=== PATIENT | female | born 1985 | race Caucasian/White ===

== ENCOUNTER 2018-03-14 11:04 | Emergency (ER) | payer BC, SELFPAY ==
[2018-03-14 11:15] VITALS: BP 136/73; PULSE 90; RESP 16; TEMP 36.7; O2SAT 99
--- NOTE | 2018-03-14 11:21 | W.ED.GENAD ---
Discharge Plan Discharge Details Chief Complaint: EarProblem Primary Care Provider: NONE,NONE ED Provider: Arielle Menezes Home Meds and New Rx's Prescriptions: No Action buprenorphine-naloxone [Suboxone] 1 EACH film 10 mg Sublingual DAILY RF: 0 HPI General Date/Time Provider Initiated Documentation: 03/14/18 11:21. Limitations to Documentation: no limitations. Information obtained by: patient. Related Data Home Medications Medication Instructions Recorded Confirmed buprenorphine-naloxone [Suboxone] 10 mg SUBLINGUAL DAILY 10/01/12 03/14/18 Allergies Allergy/AdvReac Type Severity Reaction Status Date / Time Penicillins Allergy Intermediate Hives Unverified 08/30/17 09:34 General Stated Complaint: EarProblem PRAVIN: 4 PFSH Social History Smoking/Tobacco Use Status: Current every day Course Vital Signs Temperature 36.7 C 03/14/18 11:15 Pulse 90 03/14/18 11:15 Respiratory Rate 16 03/14/18 11:15 Blood Pressure 136/73 03/14/18 11:15 Pulse Oximetry 99 03/14/18 11:15 Temperature 36.7 C 03/14/18 11:15 Temperature Source Temporal Artery Scan 03/14/18 11:15 Pulse 90 03/14/18 11:15 Respiratory Rate 16 03/14/18 11:15 Respiratory Effort 03/14/18 11:17 Blood Pressure 136/73 03/14/18 11:15 Blood Pressure Position Sitting 03/14/18 11:15 Pulse Oximetry 99 03/14/18 11:15 Oxygen Delivery Method Room Air 03/14/18 11:15 Oxygen Flow Rate 0 03/14/18 11:15 Pain Level 0 03/14/18 11:15
--- NOTE | 2018-03-14 11:26 | ED.GENADUL_ITS ---
Discharge Plan Discharge Details Chief Complaint: EarProblem Primary Care Provider: NONE,NONE ED Provider: Arielle Menezes Home Meds and New Rx's Prescriptions: No Action buprenorphine-naloxone [Suboxone] 1 EACH film 10 mg Sublingual DAILY RF: 0 HPI General Date/Time Provider Initiated Documentation: 03/14/18 11:21 . Limitations to Documentation: no limitations . Information obtained by: patient . Related Data Home Medications Medication Instructions Recorded Confirmed buprenorphine-naloxone [Suboxone] 10 mg SUBLINGUAL DAILY 10/01/12 03/14/18 Allergies Allergy/AdvReac Type Severity Reaction Status Date / Time Penicillins Allergy Intermediate Hives Unverified 08/30/17 09:34 General Stated Complaint: EarProblem PRAVIN: 4 PFSH Social History Smoking/Tobacco Use Status: Current every day Course Vital Signs Temperature 36.7 C 03/14/18 11:15 Pulse 90 03/14/18 11:15 Respiratory Rate 16 03/14/18 11:15 Blood Pressure 136/73 03/14/18 11:15 Pulse Oximetry 99 03/14/18 11:15 Temperature 36.7 C 03/14/18 11:15 Temperature Source Temporal Artery Scan 03/14/18 11:15 Pulse 90 03/14/18 11:15 Respiratory Rate 16 03/14/18 11:15 Respiratory Effort 03/14/18 11:17 Blood Pressure 136/73 03/14/18 11:15 Blood Pressure Position Sitting 03/14/18 11:15 Pulse Oximetry 99 03/14/18 11:15 Oxygen Delivery Method Room Air 03/14/18 11:15 Oxygen Flow Rate 0 03/14/18 11:15 Pain Level 0 03/14/18 11:15
--- NOTE | 2018-03-14 12:07 | W.ED.GENAD ---
Discharge Plan Disposition Patient Disposition: HOME Condition: Fair Discharge Details Chief Complaint: EarProblem Clinical Impression: Fluid level behind tympanic membrane Primary Care Provider: NONE,NONE ED Provider: Rosa Maria Frye Home Meds and New Rx's Prescriptions: New azithromycin 500 mg tablet See Label Instructions .ROUTE .COMPLEX Qty: 3 RF: 0 No Action buprenorphine-naloxone [Suboxone] 1 EACH film 10 mg Sublingual DAILY RF: 0 Discharge Instructions Instructions: Otitis Media (ED) Additional Instructions: Encourage hydration. Tylenol and ibuprofen as needed for discomfort. Please use Afrin and daily antihistamine to help with symptom medic management. At this point, your does not appear to have a bacterial infection. However, as one may develop, I have also prescribed an antibiotic to begin if you develop pain, fevers or symptoms persist over the next 2-3 days. If you develop new/worsening symptoms please seek care urgently once again Discharge Data Discharge Date/Time-TO BE ENTERED AT DEPARTURE: 03/14/18 12:31 Medical Decision Making Patient is a 32-year-old female presenting today with chief complaint of diminished hearing in the left ear. Patient has IUD in place. She reports that she had cold symptoms for the past week and a half. Reports that her cough is improving. However, she started feeling ear pressure yesterday. States that this morning when she awoke she noted that the area was quite diminished. Reports that she has had symptoms like this similarly and was diagnosed with otitis media. She denies any recent fevers or chills. Denies any pain in the ear. Denies any GI upset. Patient is an active smoker. Reports that she has had a cough but this is been improving and is nonproductive. States she has been having a lot of nasal congestion. Denies any sinus pain. States she has had slightly sore throat but feels that this is from postnasal drip. On exam, patient has a clear notable fluid level in the left ear. No erythema, bulging or loss of landmarks. Patient I discussed that this does not appear frankly bacterial. It appears more like eustachian tube dysfunction likely associated with her recent illness. We discussed the pathology associated with this. I advised that she try [id number] medications such as Afrin and antihistamine. We also discussed that this can develop into a otitis media and his bacteria can propagate in this stagnant fluid. I will prescribe an antibiotic that she will begin if she develops fevers, chills or increased discomfort in the ear. Advise follow-up with primary care in 1 week if symptoms have not completely resolved. Encouraged smoking cessation. All of her questions and concerns were addressed and she is in agreement this time. HPI General Mode of arrival: ambulatory. Date/Time Provider Initiated Documentation: 03/14/18 11:21. Limitations to Documentation: no limitations. Information obtained by: patient. History of Present Illness 32 year old F presents to the emergency department with the chief complaint of diminished hearing left ear, described as mild, Quality is described as aching, and is localized to the face. Patient reports no radiation. Patient started experiencing this day(s) (1) and it has been constant. No relieving factors improve symptom(s), No exacerbating factors reported . Patient notes other (congestion); denies chest pain, cough, fever/chills, headaches, loss of appetite, malaise and rash. Patient did receive the following treatments prior to arrival, none Related Data Home Medications Medication Instructions Recorded Confirmed buprenorphine-naloxone [Suboxone] 10 mg SUBLINGUAL DAILY 10/01/12 03/14/18 azithromycin See Label Instructions .ROUTE 03/14/18 .COMPLEX #3 tab Previous Rx's Medication Instructions Recorded azithromycin See Label Instructions .ROUTE 03/14/18 .COMPLEX #3 tab Allergies Allergy/AdvReac Type Severity Reaction Status Date / Time Penicillins Allergy Intermediate Hives Unverified 08/30/17 09:34 General Stated Complaint: EarProblem PRAVIN: 4 Review of Systems Constitutional Reports as per HPI and Denies headache(s) Eyes Denies change in vision and Denies eye discharge ENT Reports as per HPI, Denies vertigo, Denies dizziness and Denies headache(s) Cardiovascular Reports as per HPI Respiratory Reports as per HPI Gastrointestinal Denies nausea and Denies vomiting Integumentary/Breasts Denies rash Neurologic Reports as per HPI, Denies vertigo, Denies dizziness and Denies headache(s) [facility] Social History Smoking/Tobacco Use Status: Current every day Exam Const General: cooperative, healthy appearing, comfortable, no acute distress, well developed and well groomed Nutritional Appearance: average body habitus and well nourished Orientation: alert and awake HENMI Head: normal to inspection, normocephalic and atraumatic Ears: hearing grossly normal bilaterally, external ears normal, TM normal on the right, mastoids normal, no periauricular adenopathy and TM abnormal wth effusion serous and with fluid behind the TM on the left; not bulging, not bullous, not dull, not erythematous, with no loss of landmarks, not obstructed by cerumen, not perforated and not retracted General nose exam: external nose normal Face and sinus: normal facial exam and sinuses nontender Mouth: oral mucosae normal, lip normal, tongue normal, oropharynx normal, moist mucous membranes and no trismus Teeth and gingiva: dentition normal Throat: posterior oropharynx normal, tonsils normal and uvula midline Eyes General: appearance normal, both eyes and all related structures Alignment and Position: alignment normal Eyelids: eyelids normal Conjunctivae: conjunctivae normal Sclera: sclerae normal Cornea: corneas normal Pupils: PERRL EOM: EOM intact bilaterally Neck Neck: normal visual inspection, full ROM, no lymphadenopathy and no meningeal signs Resp Effort & Inspection: normal respiratory effort, able to speak in complete sentences and no respiratory distress Auscultation: clear to auscultation bilaterally Cardio Rate: regular rate Rhythm: regular rhythm Heart Sounds: S1 normal and S2 normal Skin General skin exam: no rashes or lesions noted Neuro General: alert and awake Cognition: normal cognition Speech: speech normal Gait: normal gait Psych Appearance: grossly normal and well kempt Mental Status: mental status grossly normal Speech and Movement: speech and movement normal Course Vital Signs Temperature 36.7 C 03/14/18 11:15 Pulse 90 03/14/18 11:15 Respiratory Rate 16 03/14/18 11:15 Blood Pressure 136/73 03/14/18 11:15 Pulse Oximetry 99 03/14/18 11:15 Temperature 36.7 C 03/14/18 11:15 Temperature Source Temporal Artery Scan 03/14/18 11:15 Pulse 90 03/14/18 11:15 Respiratory Rate 16 03/14/18 11:15 Respiratory Effort 03/14/18 11:17 Blood Pressure 136/73 03/14/18 11:15 Blood Pressure Position Sitting 03/14/18 11:15 Pulse Oximetry 99 03/14/18 11:15 Oxygen Delivery Method Room Air 03/14/18 11:15 Oxygen Flow Rate 0 03/14/18 11:15 Pain Level 0 03/14/18 11:15
--- NOTE | 2018-03-14 12:10 | ED.GENADUL_ITS ---
Discharge Plan Disposition Patient Disposition: HOME Condition: Fair Discharge Details Chief Complaint: EarProblem Clinical Impression: Fluid level behind tympanic membrane Primary Care Provider: NONE,NONE ED Provider: Rosa Maria Frye Home Meds and New Rx's Prescriptions: New azithromycin 500 mg tablet See Label Instructions .ROUTE .COMPLEX Qty: 3 RF: 0 No Action buprenorphine-naloxone [Suboxone] 1 EACH film 10 mg Sublingual DAILY RF: 0 Discharge Instructions Instructions: Otitis Media (ED) Additional Instructions: Encourage hydration. Tylenol and ibuprofen as needed for discomfort. Please use Afrin and daily antihistamine to help with symptom medic management. At this point, your does not appear to have a bacterial infection. However, as one may develop, I have also prescribed an antibiotic to begin if you develop pain, fevers or symptoms persist over the next 2-3 days. If you develop new/ worsening symptoms please seek care urgently once again Discharge Data Discharge Date/Time-TO BE ENTERED AT DEPARTURE: 03/14/18 12:31 Medical Decision Making Patient is a 32-year-old female presenting today with chief complaint of diminished hearing in the left ear. Patient has IUD in place. She reports that she had cold symptoms for the past week and a half. Reports that her cough is improving. However, she started feeling ear pressure yesterday. States that this morning when she awoke she noted that the area was quite diminished. Reports that she has had symptoms like this similarly and was diagnosed with otitis media. She denies any recent fevers or chills. Denies any pain in the ear. Denies any GI upset. Patient is an active smoker. Reports that she has had a cough but this is been improving and is nonproductive. States she has been having a lot of nasal congestion. Denies any sinus pain. States she has had slightly sore throat but feels that this is from postnasal drip. On exam, patient has a clear notable fluid level in the left ear. No erythema, bulging or loss of landmarks. Patient I discussed that this does not appear frankly bacterial. It appears more like eustachian tube dysfunction likely associated with her recent illness. We discussed the pathology associated with this. I advised that she try [id number] medications such as Afrin and antihistamine. We also discussed that this can develop into a otitis media and his bacteria can propagate in this stagnant fluid. I will prescribe an antibiotic that she will begin if she develops fevers, chills or increased discomfort in the ear. Advise follow-up with primary care in 1 week if symptoms have not completely resolved. Encouraged smoking cessation. All of her questions and concerns were addressed and she is in agreement this time. HPI General Mode of arrival: ambulatory . Date/Time Provider Initiated Documentation: 03/14/18 11:21 . Limitations to Documentation: no limitations . Information obtained by: patient . History of Present Illness 32 year old F presents to the emergency department with the chief complaint of diminished hearing left ear, described as mild, Quality is described as aching, and is localized to the face. Patient reports no radiation. Patient started experiencing this day(s) (1) and it has been constant. No relieving factors improve symptom(s), No exacerbating factors reported . Patient notes other (congestion); denies chest pain, cough, fever/chills, headaches, loss of appetite, malaise and rash. Patient did receive the following treatments prior to arrival, none Related Data Home Medications Medication Instructions Recorded Confirmed buprenorphine-naloxone [Suboxone] 10 mg SUBLINGUAL DAILY 10/01/12 03/14/18 azithromycin See Label Instructions .ROUTE 03/14/18 .COMPLEX #3 tab Previous Rx's Medication Instructions Recorded azithromycin See Label Instructions .ROUTE 03/14/18 .COMPLEX #3 tab Allergies Allergy/AdvReac Type Severity Reaction Status Date / Time Penicillins Allergy Intermediate Hives Unverified 08/30/17 09:34 General Stated Complaint: EarProblem PRAVIN: 4 Review of Systems Constitutional Reports as per HPI and Denies headache(s) Eyes Denies change in vision and Denies eye discharge ENT Reports as per HPI, Denies vertigo, Denies dizziness and Denies headache(s) Cardiovascular Reports as per HPI Respiratory Reports as per HPI Gastrointestinal Denies nausea and Denies vomiting Integumentary/Breasts Denies rash Neurologic Reports as per HPI, Denies vertigo, Denies dizziness and Denies headache(s) [facility] Social History Smoking/Tobacco Use Status: Current every day Exam Const General: cooperative, healthy appearing, comfortable, no acute distress, well developed and well groomed Nutritional Appearance: average body habitus and well nourished Orientation: alert and awake HENDC Head: normal to inspection, normocephalic and atraumatic Ears: hearing grossly normal bilaterally, external ears normal, TM normal on the right, mastoids normal, no periauricular adenopathy and TM abnormal wth effusion serous and with fluid behind the TM on the left; not bulging, not bullous, not dull, not erythematous, with no loss of landmarks, not obstructed by cerumen, not perforated and not retracted General nose exam: external nose normal Face and sinus: normal facial exam and sinuses nontender Mouth: oral mucosae normal, lip normal, tongue normal, oropharynx normal, moist mucous membranes and no trismus Teeth and gingiva: dentition normal Throat: posterior oropharynx normal, tonsils normal and uvula midline Eyes General: appearance normal, both eyes and all related structures Alignment and Position: alignment normal Eyelids: eyelids normal Conjunctivae: conjunctivae normal Sclera: sclerae normal Cornea: corneas normal Pupils: PERRL EOM: EOM intact bilaterally Neck Neck: normal visual inspection, full ROM, no lymphadenopathy and no meningeal signs Resp Effort & Inspection: normal respiratory effort, able to speak in complete sentences and no respiratory distress Auscultation: clear to auscultation bilaterally Cardio Rate: regular rate Rhythm: regular rhythm Heart Sounds: S1 normal and S2 normal Skin General skin exam: no rashes or lesions noted Neuro General: alert and awake Cognition: normal cognition Speech: speech normal Gait: normal gait Psych Appearance: grossly normal and well kempt Mental Status: mental status grossly normal Speech and Movement: speech and movement normal Course Vital Signs Temperature 36.7 C 03/14/18 11:15 Pulse 90 03/14/18 11:15 Respiratory Rate 16 03/14/18 11:15 Blood Pressure 136/73 03/14/18 11:15 Pulse Oximetry 99 03/14/18 11:15 Temperature 36.7 C 03/14/18 11:15 Temperature Source Temporal Artery Scan 03/14/18 11:15 Pulse 90 03/14/18 11:15 Respiratory Rate 16 03/14/18 11:15 Respiratory Effort 03/14/18 11:17 Blood Pressure 136/73 03/14/18 11:15 Blood Pressure Position Sitting 03/14/18 11:15 Pulse Oximetry 99 03/14/18 11:15 Oxygen Delivery Method Room Air 03/14/18 11:15 Oxygen Flow Rate 0 03/14/18 11:15 Pain Level 0 03/14/18 11:15
== END 2018-03-14 12:31 | disposition home or self-care (01) ==
PROVIDERS: Emergency Provider Physician Assistant
DX: H91.02 Ototoxic hearing loss, left ear (principal); H93.92 Unspecified disorder of left ear; F17.210 Nicotine dependence, cigarettes, uncomplicated
CPT/HCPCS: 99283

== ENCOUNTER 2018-08-18 10:44 | Outpatient (CLI) | payer BC, SELFPAY ==
[2018-08-18 12:14] LABS: Cholesterol 179 mg/dL (50-200); HDL Cholesterol 59 mg/dL (40-60); LDL CHOLESTEROL 104 mg/dL (<100); Triglyceride 73 mg/dL (30-150)
== END 2018-08-18 11:04 ==
PROVIDERS: PCP Family Medicine; Visit Provider Family Medicine
DX: Z13.220 Encounter for screening for lipoid disorders (principal)
CPT/HCPCS: 36415; 80061; 83721

== ENCOUNTER 2018-12-06 00:43 | Outpatient (CLI) | payer BC, SELFPAY ==
--- NOTE | 2018-12-06 09:03 | DI.US_ITS ---
SYMPTOM/DIAGNOSIS: NEW SMALL LT BREAST MASS, N63.20 LEFT BREAST ULTRASOUND: The area of palpable abnormality was scanned in the chest wall superior to the breast. In this area, there is an ovoid, mildly hyperechoic area measuring 10 by 4 mm. The patient states a bruise in this location and that the lump is decreasing in size. The findings are likely post traumatic. There is no evidence of a suspicious mass or drainable collection. IMPRESSION: Small ovoid area is likely sequela of previous trauma. No suspicious findings are seen. Category 2. MQSA ASSESSMENT OF FINDINGS: Negative with benign findings. Category 2. Patient will receive a letter notifying them of these results.
== END 2018-12-06 01:03 ==
PROVIDERS: PCP Family Medicine; Visit Provider Family Medicine
DX: N63.20 Unspecified lump in the left breast, unspecified quadrant (principal); S20.02XS Contusion of left breast, sequela
CPT/HCPCS: 76642

== ENCOUNTER 2020-03-22 12:15 | Outpatient (REF) | payer BC, SELFPAY | END 2020-03-22 12:35 | LOC: LBN 12:15 | PROVIDERS: PCP Family Medicine; Visit Provider Nurse Practitioner Family | DX: R10.2 Pelvic and perineal pain (principal) | CPT/HCPCS: 87480; 87510; 87660 ==

== ENCOUNTER 2020-04-25 05:04 | Outpatient (CLI) | payer BC, SELFPAY ==
[2020-04-28 14:57] LABS: Patient Race White; SARS-CoV-2 RNA Undetected (Undetected); SARS-CoV-2 Specimen Source Nasal
== END 2020-04-25 05:24 ==
PROVIDERS: PCP Family Medicine; Visit Provider Nurse Practitioner
DX: Z20.828 Contact with and (suspected) exposure to other viral communicable diseases (principal)
CPT/HCPCS: U0003

== ENCOUNTER 2022-02-13 15:12 | Outpatient (REF) | payer OTHER, SELFPAY ==
--- NOTE | 2022-02-13 10:45 | PAPFT_PTH ---
PATIENT: Bijal Hernandez LOC: [facility] U#:[id number] AGE/SX: 36/F ROOM: RE02/13/[address]: Selwyn Bennett DO : 1985 BED: DIS: 02/13/2022 SPEC #: [id number] RECD: 02/13/22 15:23 STATUS: ORA REQ #: [id number] CELSA: 02/13/22 10:[address]: Selwyn Bennett DEPT: [facility] Cytology RECD BY: Anca Singleton Tissues: 1 - CX/ENDOCX FOR PAP SMEARS Procedures: PAP THIN PREP/UVM Screening HPV DNA PROBE Comments: [id number]
== END 2022-02-13 15:13 | disposition home or self-care (01) ==
LOC: LBN 15:12
PROVIDERS: PCP Family Medicine; Visit Provider Family Medicine
DX: N76.0 Acute vaginitis (principal); Z12.4 Encounter for screening for malignant neoplasm of cervix; Z11.51 Encounter for screening for human papillomavirus (HPV)
CPT/HCPCS: 88142; 87624

== ENCOUNTER 2022-12-01 02:09 | Outpatient (CLI) | payer OTHER, SELFPAY ==
[2022-12-01 15:26] LABS: ALT 14 U/L (14-59); AST 14 U/L (15-37); Albumin 4.4 g/dL (3.4-5.0); Alkaline Phosphatase 44 U/L (46-116); Bilirubin, Direct 0.2 mg/dL (0.0-0.2); Bilirubin, Total 0.6 mg/dL (0.2-1.0); Total Protein 7.6 g/dL (6.4-8.2)
== END 2022-12-01 02:10 | disposition home or self-care (01) ==
LOC: LBO 02:09
PROVIDERS: PCP Family Medicine; Visit Provider Family Medicine
DX: K71.6 Toxic liver disease with hepatitis, not elsewhere classified (principal)
CPT/HCPCS: 36415; 80076

== ENCOUNTER 2024-09-27 03:25 | Outpatient (CLI) | payer OTHER, SELFPAY ==
[2024-09-27 10:59] LABS: HCT 39.6 % (36.0-46.0); HGB 13.7 g/dL (11.2-15.7); MCH 31.6 pg (27.0-33.0); MCHC 34.6 % (32.0-36.0); MCV 91 fL (80-95); MPV 9.4 fL (8.0-11.0); Platelet Count 288 10^3/uL (130-400); RBC 4.34 10^6/uL (3.93-5.22); RDW 11.6 % (11.7-14.6); RDW-SD 39.2 fL; WBC 6.54 10^3/uL (4.4-10.8)
[2024-09-27 12:44] LABS: ALT 20 U/L (14-59); AST 24 U/L (15-37); Albumin 3.8 g/dL (3.4-5.0); Alkaline Phosphatase 46 U/L (46-116); Anion Gap 4.9 mmol/L (3-11); BUN 9 mg/dL (7-18); Bilirubin, Total 0.7 mg/dL (0.2-1.0); CO2 29.1 mmol/L (21.0-32.0); CREATININE 0.8 mg/dL (0.55-1.02); Calcium 8.8 mg/dL (8.5-10.1); Chloride 105 mmol/L (98-107); Estimated GFR 97.87 (mL/min/1.73m2); Glucose 109 mg/dL (74-106); Potassium 3.9 mmol/L (3.5-5.1); Sodium 139 mmol/L (136-145); TSH (W/Ref FT4) 0.81 uIU/mL (0.36-3.74); Vitamin B12 121 pg/mL (193-986)
[2024-09-28 09:49] LABS: Syphilis Serology (RPR) Negative (Negative)
== END 2024-09-27 03:26 | disposition home or self-care (01) ==
LOC: LBO 03:25
PROVIDERS: PCP Family Medicine; Visit Provider Family Medicine
DX: G62.9 Polyneuropathy, unspecified (principal)
CPT/HCPCS: 36415; 80053; 85027; 82607; 84443; 86592

== ENCOUNTER 2025-03-02 13:49 | Outpatient (CLI) | payer OTHER, SELFPAY ==
[2025-03-02 14:47] LABS: Vitamin B12 573 pg/mL (193-986)
== END 2025-03-02 13:50 | disposition home or self-care (01) ==
LOC: LBO 13:49
PROVIDERS: PCP Family Medicine; Visit Provider Family Medicine
DX: E53.8 Deficiency of other specified B group vitamins (principal)
CPT/HCPCS: 36415; 82607